=== PATIENT | female | born 1965 | race Two or more races ===

== ENCOUNTER 2017-03-22 13:28 | Emergency (ER) | payer BC, MEDICARE ==
[~2017-03-22] VITALS: Ht 154.9 cm; Wt 90.7 kg
[2017-03-22 13:35] VITALS: BP 118/65
[2017-03-22] MEDS ORDERED: diphenhydrAMINE HCL 25 MG CAPSULE PO ONE (13:45)
[2017-03-22] MEDS ORDERED: methylPREDNISolone SOD SUCC PF 125 MG/2 ML VIAL. IM ONE (13:45)
--- NOTE | 2017-03-22 13:54 | PHYS DOC ---
Past Medical History Past Medical History: Anxiety, Cancer Additional Past Medical Histor: Breast ca Past Surgical History: Hysterectomy Alcohol Use: None Drug Use: None Adult General Chief Complaint Chief Complaint: SKIN RASH/ABSCESS HPI HPI Patient is a 52 year old female presents to the emergency department with a 4 day history of rash to bilateral legs. Patient states it started after taking care of the weeds. Patient states she has been putting Gold Quan over the over the area. Patient denies drainage or discharge coming from the site. Denies fever, chills, nausea or vomiting. Denies SOA. Review of Systems Review of Systems Constitutional: Denies fever or chills [] Eyes: Denies change in visual acuity, redness, or eye pain [] HENT: Denies nasal congestion or sore throat [] Respiratory: Denies cough or shortness of breath [] Cardiovascular: No additional information not addressed in HPI [] GI: Denies abdominal pain, nausea, vomiting, bloody stools or diarrhea [] : Denies dysuria or hematuria [] Musculoskeletal: Denies back pain or joint pain [] Integument: rash denies skin lesions [] Neurologic: Denies headache, focal weakness or sensory changes [] Endocrine: Denies polyuria or polydipsia [] Current Medications Current Medications Current Medications Medications (Trade) Dose Ordered Sig/Marcel Start Time Stop Time Status Last Admin Dose Admin Diphenhydramine HCl (Benadryl) 25 mg 1X ONCE 03/22/17 13:45 03/22/17 13:46 DC 03/22/17 13:47 25 MG Methylprednisolone Sodium Succinate (SOLU-Medrol 125MG VIAL) 125 mg 1X ONCE 03/22/17 13:45 03/22/17 13:46 DC 03/22/17 13:47 125 MG Allergies Allergies Allergies Coded Allergies Type Severity Reaction Last Updated Verified No Known Drug Allergies 10/07/16 No Physical Exam Physical Exam Constitutional: Well developed, well nourished, no acute distress, non-toxic appearance. [] HENT: Normocephalic, atraumatic, bilateral external ears normal, oropharynx moist, no oral exudates, nose normal. [] Eyes: PERRLA, EOMI, conjunctiva normal, no discharge. [] Neck: Normal range of motion, no tenderness, supple, no stridor. [] Cardiovascular:Heart rate regular rhythm, no murmur [] Lungs & Thorax: Bilateral breath sounds clear to auscultation [] Skin: Warm, dry, no erythema. Patient with rash noted bilateral lower legs, rash noted to have pustules Back: No tenderness] Extremities: No tenderness, no cyanosis, no clubbing, ROM intact, no edema. [] Neurologic: Alert and oriented X 3, normal motor function, normal sensory function, no focal deficits noted. [] Psychologic: Affect normal, judgement normal, mood normal. [] Current Patient Data Vital Signs Vital Signs Date Time Temp Pulse Resp B/P (MAP) Pulse Ox O2 Delivery O2 Flow Rate FiO2 03/22/17 13:35 97.9 81 18 99 Room Air 97.9 EKG EKG [] Radiology/Procedures Radiology/Procedures [] Course & Med Decision Making Course & Med Decision Making Pertinent Labs and Imaging studies reviewed. (See chart for details) Patient was provided with benadryl and solumedrol here in the emergency department. Patient recommended to take benadryl at home. She was instructed this medication will cause drowsiness do not take if you need to alert and orient. Patient will be provided with prescription for prednisone. Recommended calamine lotion. Patient was provided with signs and symptoms to return to the emergency department. Patient will be discharged home in stable condition. [] Dragon Disclaimer Dragon Disclaimer This electronic medical record was generated, in whole or in part, using a voice recognition dictation system. Departure Departure Impression: Primary Impression: Contact dermatitis Disposition: 01 HOME, SELF-CARE Condition: STABLE Referrals: SAPNA NINA MD (PCP) Patient Instructions: Contact Dermatitis, [id number] Additional Instructions: Activity as tolerated Medication as prescribed Benadryl 25 mg every 6 hours. This medication will cause drowsiness do not take if you need to be alert and oriented Keep the areas cool to prevent further irritation Calamine lotion may be placed over the area to help with drying the pustules up Aveeno bath may also help soothe the skin Followup with your primary care provider in 5-7 days Return to the emergency department as needed for signs and symptoms that become worse Scripts Prednisone (PREDNISONE) 20 Mg Tablet 40 MG PO DAILY, #14 TAB Prov: LALIT ESCOTO APRN 03/22/17 LALIT ESCOTO APRN Mar 22, 2017 13:54
[2017-03-22] MEDS ORDERED: PRED20TA PO (14:03)
== END 2017-03-22 14:04 | disposition home or self-care (01) ==
LOC: ER 13:28
DX: L25.9 Unspecified contact dermatitis, unspecified cause (principal)
CPT/HCPCS: 96372; 99283; J2930; Q0163

== ENCOUNTER 2020-10-10 09:09 | Emergency (ER) | payer BC, MEDICARE ==
[~2020-10-10] VITALS: Ht 154.9 cm; Wt 53.6 kg
[~2020-10-10 09:09] MED LIST: PRED20TA PO
[2020-10-10 09:25] VITALS: BP 136/71
--- NOTE | 2020-10-10 10:14 | RAD ---
Exam performed: One view chest. Indication: Reason: Left lower ribcage pain and deformity without injury / Spl. Instructions: / Hist ory: Date of Service: 10/10/2020 9:51 AM Comparison: None available. Single AP upright portable view chest findings: Cardiomediastinal silhouette is within limits of normal. No acute infiltrates, effusion or pneumotho rax is detected. The bony structures are normal. Impression: No acute cardiopulmonary process is detected. Electronically signed by: Mar Tse MD (10/10/2020 10:12 AM) [id number]
--- NOTE | 2020-10-10 10:26 | ED.ADGEN ---
Past Medical History Past Medical History: Anxiety, Cancer Additional Past Medical Histor: Breast ca Past Surgical History: Gastric Bypass, Hysterectomy Smoking Status: Never Smoker Alcohol Use: None Drug Use: None General Adult EDM: Chief Complaint: RIB PAIN HPI: HPI: Patient is a 55-year-old female who presents to the emergency room complaining of left lower rib pain. She states this initially started 10 days ago. She noticed that that side of her chest was sticking out further than the other side of her chest. She states the pain has progressively gotten worse and feels like a very strong ache. She has tried to use a lidocaine patch without any resolution of symptoms. She states that the area is very tender when touched. She denies any cough, fever, shortness of breath, abdominal pain, nausea, vomiting, diarrhea, constipation. She has had some rhinorrhea. She denies any weight loss. Review of Systems: Review of Systems: Complete ROS is negative unless otherwise documented in HPI Allergies: Allergies: Allergies Coded Allergies Type Severity Reaction Last Updated Verified No Known Drug Allergies 10/07/16 No Physical Exam: PE: General: Awake, alert, NAD. Well Nourished, well hydrated. Cooperative HEENT: Atraumatic, EOMI, PERRL, airway patent, moist oral mucosa Neck: Supple, trachea midline Respiratory: CTA bilaterally, normal effort, no wheezing/crackles, left ribs extended out further than right ribs, tenderness along the lower anterior ribs with soft tissue swelling CV: RRR, no murmur, cap refill <2 GI: Soft, nondistended, nontender, no masses MSK: No obvious deformities Skin: Warm, dry, intact Neuro: A&O x3, speech NL, sensory and motor grossly intact, no focal deficits Psych: Normal affect, normal mood, not suicidal or homicidal Current Patient Data: Vital Signs: Vital Signs Date Time Temp Pulse Resp B/P (MAP) Pulse Ox O2 Delivery O2 Flow Rate FiO2 10/10/20 09:25 97.5 80 16 136/71 (92) 98 Room Air 97.5 EKG: EKG: [] Heart Score: Risk Factors: Risk Factors: DM, Current or recent (<one month) smoker, HTN, HLP, family history of CAD, obesity. Risk Scores: Score 0 - 3: 2.5% MACE over next 6 weeks - Discharge Home Score 4 - 6: 20.3% MACE over next 6 weeks - Admit for Clinical Observation Score 7 - 10: 72.7% MACE over next 6 weeks - Early Invasive Strategies Radiology/Procedures: Radiology/Procedures: [] Course & Med Decision Making: Course & Med Decision Making Pertinent Labs and Imaging studies reviewed. (See chart for details) Patient is a 55-year-old female who presents to the emergency room complaining of pain along the left anterior lower ribs along with distention underneath her ribs. She does have unequal sides of her chest with some swelling and tenderness along the lower ribs. Initially chest x-ray was done which is normal. CT will be done to evaluate underlying tissue. Upon my evaluation there does appear some swelling under the left rib on CT which could be related to infection or inflammation. Will treat with steroids and antibiotics. Patient will follow up with Dr Powers. Patient's test results and vitals while in the ED were fully reviewed and discussed with the patient. Patient is stable and at this time does not need admission to the hospital. We have discussed strict return precautions and the importance of following up with their Primary Care Physician. Patient stated understanding and was given an opportunity to ask any questions. Patient is in agreement with plan. Jazmin Disclaimer: Dragpedro Disclaimer: This electronic medical record was generated, in whole or in part, using a voice recognition dictation system. Departure Departure Impression: Primary Impression: Rib pain Additional Impression: Effusion of rib Disposition: 01 DC HOME SELF CARE/HOMELESS Condition: STABLE Referrals: SAPNA POWERS MD (PCP) Patient Instructions: Rib Contusion Scripts Amoxicillin/Potassium Clav (AUGMENTIN 875-125 TABLET) 1 Each Tablet 1 TAB PO Q12HR for 7 Days, #14 TAB Prov: LUCIANO LEWIS MD 10/10/20 Prednisone (PREDNISONE) 50 Mg Tablet 1 TAB PO DAILY, #5 TAB Prov: LUCIANO LEWIS MD 10/10/20 Problem Qualifiers LUCIANO LEWIS MD Oct 10, 2020 10:26
--- NOTE | 2020-10-10 10:57 | RAD ---
Exam performed: CT scan of the chest without contrast. Indication: Swelling under the ribs and pain Date of Service: 10/10/2020.Comparison: None available Technique: Contiguous helical acquisitions are obtained through the chest without IV contrast. Sagit elma and coronal reformatted images are obtained and reviewed. CT chest findings: Structures at the thoracic inlet including both lobes of the thyroid gland appear grossly normal. No neck or axillary lymphadenopathy is seen. Lack of IV contrast limits evaluation of neck and intrathor acic great vessels, however they appear grossly normal in course and caliber. No dominant mediastinal , hilar or axillary lymphadenopathy seen. The central airway is patent. Interrogation of lungs demonstrates no focal infiltrates or nodules. There is no pleural effusion or pneumothorax. Limited evaluation of the upper abdominal structures is unremarkable. There are postoperative changes of the GE junction. Diffuse scattered stool seen in the colon. Impression CT chest: 1. No definite abnormality seen in the noncontrast CT scan of the chest PQRS Compliance Statement: One or more of the following individualized dose reduction techniques were utilized for this examinat ion: 1. Automated exposure control 2. Adjustment of the mA and/or kV according to patient size 3. Use of iterative reconstruction technique Electronically signed by: Mar Tse MD (10/10/2020 10:54 AM) [id number]
[2020-10-10] MEDS ORDERED: PRED50TA PO (11:23)
[2020-10-10] MEDS ORDERED: AMOX1TAB61 PO (11:23)
== END 2020-10-10 11:46 | disposition home or self-care (01) ==
LOC: ER 09:09
DX: R07.81 Pleurodynia (principal); J90 Pleural effusion, not elsewhere classified; F41.9 Anxiety disorder, unspecified; Z95.1 Presence of aortocoronary bypass graft
CPT/HCPCS: 71046; 71250; 74150; 99285-25